=== PATIENT | female | born 1945 | race Two or more races ===

== ENCOUNTER 2025-01-08 09:30 | Outpatient (RCR) | payer MEDICAID, SELFPAY ==
--- NOTE | 2024-12-25 11:38 | PTNOTE_ITS ---
PT OP Initial Eval Patient Information Outpatient Physical Therapy Treatment Date: 12/25/24 Visit Reasons: Lower back pain Medical Diagnosis: M43.07 Treatment Dx #1: Back Pain Start of Care: 12/25/24 Date of Onset: 6 months ago Smoking Status Smoking Status: Never smoker Initial Assessment Subjective: Pt is a 79 y/o female reports of chronic back pain worsening ~ 6 months ago. No imaging of her spine has been done thus far. Pt has pain down to the hip nothing past the knees. Pt has limitation with sitting, standing, sleeping, chores, self care, balance, walking, and performing recreational activities. Objective: L/S AROM: all motions are WFL with end range into extension Hip PROM: all motions are WFL except IR Hip MMTs: grossly 3+/5 Special Test (+) stover Muscle Length: Hs tightness L>R Assessment: Pt demonstrate back pain with mobility deficits leading to difficulty with ADLs. Pt will attempt physical therapy if pain persist Pt will be refer back to provider for further consultation. Short Term and Skilled Nursing Goals 1) Increase L/S AROM WNL in 6 wks to be able to perform chores 2) Decrease back pain to 2/10 in 6 wks to be able to sit and stand more than 30 mins 3) Increase core strength WFL in 6 wks to be able to perform recreational activities 4) Indep with HEP Treatment Plan 1) Manual Therapy 2) Therapeutic Activities 3) Therapeutic Exercises 4) Modalities (ice, heat, traction) Frequency and Duration: 2 x wk for 6 wks Certification Dates: 12/25/24 to 03/24/25 Procedure Charges OP PT Eval Mod Complex 30 minutes: Yes
--- NOTE | 2025-01-02 09:31 | PT.ODAYNRPT ---
PT Outpatient Daily Note OP Daily Note Outpatient Physical Therapy Treatment Date: 01/02/25 Visit Reasons: Lower back pain Subjective: Pt reports she was doing some exercises at home yesterday on her living room floor, she is sore today c/o hip pain. Objective: Please see flow sheet for ther ex list. Assessment: Interventions completed with minimal pain and discomfort. Pt requires rest breaks in between exercises due to fatigue. Plan: Continue with pOC. Assess response to treatment. Length of Time (minutes) of Treatment: 30 Minutes Procedure Charges Therapeutic Exercise 30 minutes: Yes
--- NOTE | 2025-01-08 09:48 | PT.ODAYNRPT ---
PT Outpatient Daily Note OP Daily Note Outpatient Physical Therapy Treatment Date: 01/08/25 Visit Reasons: Lower back pain Subjective: Pt reports she has been having worse back pain today and the last few days. Pt said Monday she tried to lift her trash can and she could not lift it due to back pain and hand weakness. Objective: Please see flow sheet for ther ex list. Assessment: Pt presents with moderate LBP, regressed interventions to accommodate pain. Plan: Continue with POC. Length of Time (minutes) of Treatment: 30 Minutes Procedure Charges Therapeutic Exercise 30 minutes: Yes
== END 2025-01-10 23:59 | disposition home or self-care (01) ==
LOC: CPTX 09:30
PROVIDERS: PCP Physician Assistant; Referring Provider Physician Assistant; Visit Provider Physician Assistant
DX: M43.07 Spondylolysis, lumbosacral region (principal); R26.2 Difficulty in walking, not elsewhere classified; R26.89 Other abnormalities of gait and mobility; G89.29 Other chronic pain
CPT/HCPCS: 97110; 97162

== ENCOUNTER → 2025-01-15 | Outpatient (CLI) | payer MEDICAID, SELFPAY ==
--- NOTE | 2025-01-15 08:00 | XR_ITS ---
Examination: Breast ultrasound, unilateral, left complete Date and time of exam: January 15, 2025 0838 hours INDICATIONS: Mammogram July 03, 2024 focal asymmetry upper outer left breast anterior depth, left breast sonogram July 03, 2024 9:00 nodule 5 x 4 mm retroareolar nodule 12 x 9 mm Technique: Real-time pérez scale ultrasonographic imaging performed left breast including all 4 quadrants as well as nipple retroareolar and axillary region. Findings: 3:00 cyst 2 x 3 mm 9:00 oval mass with calcifications 5 x 5 mm Retroareolar nodule circumscribed 9 x 4 x 12 mm IMPRESSION: BI-RADS Category 2: Benign findings
--- NOTE | 2025-01-15 08:30 | XR_ITS ---
Examination: Diagnostic digital mammography, bilateral Computer aided detection 3-D breast Tomosynthesis, bilateral Date and time of exam: January 15, 2025 0908 hours INDICATIONS: Focal asymmetry confirmed on spot compression views upper outer left breast anterior depth mammogram July 03, 2024 Technique: Nonmagnified MLO, CC views of the breasts to been obtained, reconstructed from 3-D Tomosynthesis images. R2 computer aided detection program utilized for evaluation of suspicious masses and/or abnormal calcifications. 3-D Tomosynthesis images obtained. Findings: Scattered areas of fibroglandular density Stable focal asymmetry upper outer left breast Grouped microcalcifications in linear distribution upper outer right breast anterior depth Impression: BI-RADS Category 0: Incomplete: Need additional imaging evaluation Grouped microcalcifications in linear distribution upper outer right breast anterior depth, recommend follow-up magnification spot compression views of these calcifications.
== END | disposition home or self-care (01) ==
PROVIDERS: PCP Family Medicine; Referring Provider Physician Assistant; Visit Provider Physician Assistant
DX: R92.8 Other abnormal and inconclusive findings on diagnostic imaging of breast (principal); R92.0 Mammographic microcalcification found on diagnostic imaging of breast
CPT/HCPCS: 76641; 77062; 77066; G0279

== ENCOUNTER 2025-02-07 09:00 | Outpatient (RCR) | payer MEDICAID, SELFPAY ==
--- NOTE | 2025-01-20 08:48 | PT.ODAYNRPT ---
PT Outpatient Daily Note OP Daily Note Outpatient Physical Therapy Treatment Date: 01/20/25 Visit Reasons: low back pain Subjective: Pt's back is okay. No change in pain lately. Pt continues to have pain down her legs intermittently. Objective: Please see flow chart for list of ther ex performed Assessment: tolerate exercises with minimal pain; pre heat helped patient tolerate exercises Plan: Continue with PT Length of Time (minutes) of Treatment: 30 Minutes Procedure Charges Therapeutic Exercise 30 minutes: Yes
--- NOTE | 2025-01-23 09:14 | PT.ODAYNRPT ---
PT Outpatient Daily Note OP Daily Note Outpatient Physical Therapy Treatment Date: 01/23/25 Visit Reasons: low back pain Subjective: Pt bropught in by son who is encouraging pt to be more active, concerned because he feels pt is to stationary at home and that is contributing to onset of LBP and other joint issues. Objective: Please see flow sheet for ther ex list. Assessment: Pt educated on benefits of being active ~30 minutes a day and complications that can arise from prolonged stationary position. Pt was instructed on updated HEP, given print out. Plan: Continue with POC. Length of Time (minutes) of Treatment: 30 Minutes Procedure Charges Therapeutic Exercise 30 minutes: Yes
--- NOTE | 2025-01-30 09:06 | PT.ODAYNRPT ---
PT Outpatient Daily Note OP Daily Note Outpatient Physical Therapy Treatment Date: 01/30/25 Visit Reasons: low back pain Subjective: Pt c/o LBP, hip pain and shoulder pain. Pt mentioned since she canceled last visit she did some HEP. Objective: Please see flow sheet for ther ex list. Assessment: Interventions given alternating sitting and standing to maximize pt participation. Plan: Continue with poC. Length of Time (minutes) of Treatment: 30 Minutes Procedure Charges Therapeutic Exercise 30 minutes: Yes
--- NOTE | 2025-02-07 09:40 | PT.ODAYNRPT ---
PT Outpatient Daily Note OP Daily Note Outpatient Physical Therapy Treatment Date: 02/07/25 Visit Reasons: low back pain Subjective: Pt reports she has not been doing HEP these last few days, had a shingles vaccine and since then does not feel with much energy. Objective: Please see flow sheet for there ex list. Assessment: Pt presents in clinic with decrease endurance, interventions given alternating sitting and standing to maximize pt participation. Plan: Continue with poC. Length of Time (minutes) of Treatment: 30 Minutes Procedure Charges Therapeutic Exercise 30 minutes: Yes
== END 2025-02-10 23:59 | disposition home or self-care (01) ==
LOC: CPTX 09:00
PROVIDERS: PCP Physician Assistant; Referring Provider Physician Assistant; Visit Provider Physician Assistant
DX: M43.07 Spondylolysis, lumbosacral region (principal); R26.2 Difficulty in walking, not elsewhere classified; R26.89 Other abnormalities of gait and mobility; G89.29 Other chronic pain
CPT/HCPCS: 97110

== ENCOUNTER → 2025-02-18 | Outpatient (CLI) | payer MEDICAID, SELFPAY ==
--- NOTE | 2025-02-18 09:45 | XR_ITS ---
Examination: Breast ultrasound, unilateral, right complete Date and time of exam: February 19, 2020 5:10 AM Indications: Mammogram January 15, 2025 focal asymmetry outer left breast bilateral breast pain 6 weeks Technique: Real-time pérez scale ultrasonographic imaging performed right breast including all 4 quadrants as well as nipple retroareolar and axillary region. Findings: 10:00 cyst 3 x 3 mm 10:00 circumscribed nodule 8 x 7 mm 11:00 nodule lobular margins 8 x 6 mm 10:00 cyst 4 x 3 mm 11:00 circumscribed nodule 3 x 3 mm Impression: BI-RADS Category 3: Probably benign findings. Recommend 1 additional 6 month right mammogram follow-up to document stability of solid nodules described above
--- NOTE | 2025-02-18 10:15 | XR_ITS ---
Examination: Diagnostic digital mammography, unilateral, right Computer aided detection 3-D breast Tomosynthesis, unilateral Date and time of exam: 02/18/2025, 10:01 AM Comparisons: November 2018 through January 2025 Indications: Further evaluation of calcifications seen on recent screening exam Technique: Nonmagnified MLO, CC views of the right breast have been obtained, reconstructed from 3-D Tomosynthesis images. R2 computer aided detection program utilized for evaluation of suspicious masses and/or abnormal calcifications. 3-D Tomosynthesis images obtained. Technologist: Findings: There are scattered areas of fibroglandular density. 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 No evidence of abnormal masses or suspicious calcifications. Impression: BI-RADS category 2: Benign findings Recommend 1 year follow-up mammogram
== END | disposition home or self-care (01) ==
PROVIDERS: PCP Physician Assistant; Referring Provider Physician Assistant; Visit Provider Physician Assistant
DX: R92.321 Mammographic fibroglandular density, right breast (principal); N63.11 Unspecified lump in the right breast, upper outer quadrant
CPT/HCPCS: 76641; 77061; 77065; G0279

== ENCOUNTER 2025-03-12 11:30 | Outpatient (RCR) | payer MEDICAID, SELFPAY ==
--- NOTE | 2025-02-14 13:38 | PT.ODAYNRPT ---
PT Outpatient Daily Note OP Daily Note Outpatient Physical Therapy Treatment Date: 02/14/25 Visit Reasons: Low Back pain Subjective: Pt reports LBP is present but mild. Objective: Please see flow sheet for ther ex list. Assessment: Added hurdles exercise to work on core stability with dynamic activity, pt able to maintain upright posture with verbal cues and demonstration. Plan: Continue wtih POC. Procedure Charges Therapeutic Exercise 30 minutes: Yes
--- NOTE | 2025-02-26 13:46 | PT.ODAYNRPT ---
PT Outpatient Daily Note OP Daily Note Outpatient Physical Therapy Treatment Date: 02/26/25 Visit Reasons: Low Back pain Subjective: Pt's back is better. Pt wants to resume physical therapy. Pt has been lying her the floor for 10-15 mins which is alleviating her pain Objective: Please see flow chart for list of ther ex performed Assessment: progressing to more core exercises with good tolerance Plan: Continue with PT Length of Time (minutes) of Treatment: 30 Minutes Procedure Charges Therapeutic Exercise 30 minutes: Yes
--- NOTE | 2025-03-05 13:49 | PTNOTE_ITS ---
PT Outpatient Daily Note OP Daily Note Outpatient Physical Therapy Treatment Date: 03/05/25 Visit Reasons: Low Back pain Subjective: Pt reports she has been going for walks but notices it aggravates her back pain. Pt brought in by son, pt came in ~12 minutes late. Objective: Please see flow sheet for ther ex list. Assessment: Pt demonstrates forward trunk flexion with standing marches, verbal cues to maintain erect posture pt complied. Plan: Continue with POC. Length of Time (minutes) of Treatment: 30 Minutes PAPER MACHINE SUPERVISOR Service Modifier Method I: Divide the number of min of care provided by the PAPER MACHINE SUPERVISOR/DANIEL by the total min of care provided then multiply by 100. If greater than 11 percent modifier is required. Method II: Divide the total time of care provided to patient by 10 (round to the nearest whole number) and add 1 min. to set the minimum time requirement. If treatment total was 60 min., then 10% of 6 min PT CQ modifier applied: CQ Modifier applied Procedure Charges Therapeutic Exercise 15 minutes: Yes
--- NOTE | 2025-03-10 13:42 | PT.ODAYNRPT ---
PT Outpatient Daily Note OP Daily Note Outpatient Physical Therapy Treatment Date: 03/10/25 Visit Reasons: Low Back pain Subjective: Pt reports LBP is doing a little better today but still hap pain from B hips to LBP. Objective: Please see flow sheet for ther ex list. Assessment: Progression of interventions completed with muscle fatigue but no pain to report. Plan: Continue with POC. Length of Time (minutes) of Treatment: 30 Minutes Procedure Charges Therapeutic Exercise 30 minutes: Yes
--- NOTE | 2025-03-12 11:55 | PT.ODS1RPT ---
PT OP Progress/Discharge Note Date of Service: 03/12/25 Progress Note/DC Note Progress Note/Discharge Note: DC Note Patient Information Visit Reasons: Low Back pain Medical Diagnosis: M47.03 Treatment Dx #1: Back Pain Service Discharge Date: 03/12/25 Status Subjective: Pt's back is a little better. Pt mentioned she's been doing HEP at home. Pt has been able to stand, sit, walk, and performing ADLs with less limitation. At this time Pt feels comfortable completing physical therapy and continue HEP at home. Objective: L/S AROM: all motions are WNL Hip PROM: all motions are WNL Hip MMTs: grossly 4/5 Assessment: Pt demonstrate functional L/S mobility and strength allowing her to resume ADLs, chores, and ambulation with less limitation. Pt will no longer benefit from physical therapy due to meeting all set goals in therapy. Pt was instructed on HEP last session and educated to continue exercises to maintain overall mobility. Pt performed all exercises safely, thank you for your referrals. Plan: D/C home with HEP and follow up with MD CRUZ Procedure Charges Therapeutic Exercise 30 minutes: Yes
== END 2025-03-12 23:59 | disposition home or self-care (01) ==
LOC: CPTX 11:30
PROVIDERS: PCP Physician Assistant; Referring Provider Physician Assistant; Visit Provider Physician Assistant
DX: M43.07 Spondylolysis, lumbosacral region (principal); R26.2 Difficulty in walking, not elsewhere classified; R26.89 Other abnormalities of gait and mobility; G89.29 Other chronic pain
CPT/HCPCS: 97110